=== PATIENT | male | born 1970 | race Hispanic/Latino ===

== ENCOUNTER 2024-08-29 12:48 | Emergency (ER) | payer BC ==
[~2024-08-29] VITALS: Ht 177.8 cm; Wt 96.0 kg
[2024-08-29 13:20] VITALS: BP 138/91
[2024-08-29 13:30] VITALS: BP 131/86
[2024-08-29] MEDS ORDERED: oxyCODONE 5MG/ ACETAMINOPHEN 325MG TAB PO ONE (13:30)
[2024-08-29] MEDS ORDERED: ONDANSETRON 4 MG/TAB ODT SL ONE (13:30)
[2024-08-29 14:01] VITALS: BP 131/93
[2024-08-29 14:22] VITALS: BP 131/93
== END 2024-08-29 14:30 | disposition home or self-care (01) | DRG 605 ==
LOC: ED 12:48
DX: S90.32XA Contusion of left foot, initial encounter (principal); S93.602A Unspecified sprain of left foot, initial encounter; W20.8XXA Other cause of strike by thrown, projected or falling object, initial encounter; Y93.89 Activity, other specified; Y92.009 Unspecified place in unspecified non-institutional (private) residence as the place of occurrence of the external cause